=== PATIENT | female | born 2000 | race Caucasian/White ===

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

== ENCOUNTER 2021-11-06 23:39 | Emergency (ER) | payer SELFPAY ==
[~2021-11-06] VITALS: Ht 170.2 cm; Wt 61.4 kg
[2021-11-06 23:46] VITALS: BP 118/85; PULSE 92; TEMP 97.7
== END 2021-11-07 00:08 | disposition home or self-care (01) ==
LOC: COL.ER 23:39
DX: S00.452A Superficial foreign body of left ear, initial encounter (principal); W22.8XXA Striking against or struck by other objects, initial encounter